=== PATIENT | female | born 1980 | race Caucasian/White ===

== ENCOUNTER 2018-03-11 00:12 | Emergency (ER) | payer OTHER ==
[2018-03-11] MEDS ORDERED: IPRATROPIUM 0.5 MG/2.5 ML NEBU INHALATION STA (00:50)
[2018-03-11] MEDS ORDERED: ALBUTEROL NEBULIZED 2.5 MG/3 ML INHALATION STA (00:50)
[2018-03-11] MEDS ORDERED: methylPREDNISolone SOD SUCCI 125 MG/2 ML VIAL IV STA (00:51)
--- NOTE | 2018-03-11 02:35 | XR ---
EXAMINATION TYPE: XR chest 2V DATE OF EXAM: 03/11/2018 COMPARISON: NONE HISTORY: Cough TECHNIQUE: Frontal and lateral views of the chest are obtained. FINDINGS: There is a mild infiltrate in the left lower lobe. The other lung osman are clear. Heart and mediastinum are normal. There is no pleural effusion. Bony thorax is intact. IMPRESSION: Patchy left lower lobe pneumonia.
[2018-03-11 02:41] VITALS: BP 141/67; TEMP 99.4
[2018-03-11] MEDS ORDERED: IPRATROPIUM-ALBUTEROL 3 ML NEB INHALATION STA (02:48)
[2018-03-11] MEDS ORDERED: KETOROLAC 30 MG/ML 1 ML VIAL IVP STA (03:12)
--- NOTE | 2018-03-11 03:13 | ED ---
General Adult HPI - General Chief complaint: Upper Respiratory Infection Stated complaint: JOSE RAFAEL, cold Time Seen by Provider: 03/11/18 00:35 Source: patient Mode of arrival: ambulatory Limitations: no limitations - History of Present Illness Initial comments: 37-year-old female patient presents to the emergency department today for evaluation of shortness of breath, cough, and wheezing. Patient states that she has been sick with cough and congestion for the last 3 days. Patient states that she is very wheezy. She is reporting chest tightness. Patient states that she is short of breath and it worsens with any activity. Patient states that she cannot stop coughing. States that she has chest pain when she coughs. She denies any sputum production with the cough. Patient does admit to using tobacco. She denies any sweats, nausea, or vomiting. Denies any fevers, but states she has been chilled. Patient denies any recent rash, abdominal pain, nausea, vomiting, diarrhea, constipation, back pain, numbness, tingling, dizziness, weakness, hematuria, dysuria, urinary urgency, urinary frequency, visual changes, or any other complaints. - Related Data Previous Rx's Medication Instructions Recorded Albuterol Sulfate [Proair Hfa] 1 - 2 puff INHALATION Q6HR PRN #1 03/11/18 inhaler Benzonatate [Tessalon Perles] 100 mg PO TID #15 cap 03/11/18 Doxycycline Hyclate 100 mg PO BID #20 tab 03/11/18 Promethazine 6.25MG/5Ml [Phenergan 5 ml PO Q6H PRN #100 ml 03/11/18 Syrup] predniSONE 50 mg PO DAILY #5 tablet 03/11/18 Allergies Allergy/AdvReac Type Severity Reaction Status Date / Time No Known Allergies Allergy Verified 03/11/18 00:17 Review of Systems ROS Statement: Those systems with pertinent positive or pertinent negative responses have been documented in the HPI. ROS Other: All systems not noted in ROS Statement are negative. Past Medical History Past Medical History: No Reported History History of Any Multi-Drug Resistant Organisms: None Reported Past Surgical History: Tonsillectomy Additional Past Surgical History / Comment(s): carpal tunnel release right hand Past Psychological History: No Psychological Hx Reported Smoking Status: Current every day smoker Past Alcohol Use History: Rare Past Drug Use History: None Reported General Exam Limitations: no limitations General appearance: alert, in no apparent distress, other (This is a well- developed, well-nourished adult female patient who appears to be short of breath. Vital signs upon presentation are temperature 98.8F, pulse 85, respirations 22, blood pressure 160/82, pulse ox 94% on room air.) Eye exam: Present: normal appearance, PERRL, EOMI. Absent: scleral icterus, conjunctival injection, periorbital swelling ENT exam: Present: normal exam, normal oropharynx, mucous membranes moist Neck exam: Present: normal inspection. Absent: tenderness, meningismus, lymphadenopathy Respiratory exam: Present: respiratory distress (Patient is short of breath, has difficulty speaking in full sentences. Frequent coughing.), wheezes (Tight inspiratory and expiratory wheezing noted throughout all lung osman), other ( Tachypnea). Absent: normal lung sounds bilaterally, rales, rhonchi, stridor, chest wall tenderness Cardiovascular Exam: Present: regular rate, normal rhythm, normal heart sounds. Absent: systolic murmur, diastolic murmur, rubs, gallop, clicks GI/Abdominal exam: Present: soft, normal bowel sounds. Absent: distended, tenderness, guarding, rebound, rigid Neurological exam: Present: alert, oriented X3, CN II-XII intact Psychiatric exam: Present: normal affect, normal mood Skin exam: Present: warm, dry, intact, normal color. Absent: rash Course Vital Signs 03/11/18 03/11/18 03/11/18 00:14 00:36 01:25 Temperature 98.8 F Pulse Rate 85 83 Respiratory 22 18 Rate Blood Pressure 160/82 O2 Sat by Pulse 94 L Oximetry 03/11/18 03/11/18 03/11/18 01:50 02:04 02:40 Temperature 99.4 F Pulse Rate 82 86 105 H Respiratory 16 Rate Blood Pressure 141/67 O2 Sat by Pulse 93 L Oximetry 03/11/18 03/11/18 03/11/18 02:52 02:53 03:12 Temperature Pulse Rate 95 Respiratory Rate Blood Pressure O2 Sat by Pulse 88 L 91 L Oximetry 03/11/18 03/11/18 03:26 04:00 Temperature Pulse Rate 95 100 Respiratory 17 Rate Blood Pressure O2 Sat by Pulse 91 L Oximetry Medical Decision Making - Medical Decision Making 37-year-old female patient presents to the emergency department today for complaints of shortness of breath, wheezing, and cough. Physical examination does reveal tight inspiratory and expiratory wheezing throughout all posterior lung osman. Patient did receive a double albuterol with Atrovent treatment upon arrival. Patient reported minimal improvement of her symptoms. We did give IV Solu-Medrol. She did receive a second DuoNeb treatment. Patient states she is feeling somewhat better. Oxygen saturation continues to be in the low 90s. I did offer patient admission however she would like to try to be discharged home to manage symptoms outpatient. She will be given a prescription for prednisone, pro-air, doxycycline, and cough suppressant. She is instructed to follow-up with the primary care physician for recheck as soon as possible. Return parameters were discussed in detail. She verbalizes understanding and agrees with this plan. - Radiology Data Radiology results: report reviewed, image reviewed Two-view x-ray of the chest is obtained. There is mild infiltrate in the left lower lobe. The other lung osman are clear. Heart and mediastinum are normal. There is no pleural effusion. Bony thorax is intact. Impression by Dr. Saldana shows patchy left lower lobe pneumonia. Disposition Clinical Impression: Acute bronchitis, Left lower lobe pneumonia Disposition: HOME SELF-CARE Condition: Fair Instructions: Acute Bronchitis (ED), Pneumonia (ED) Additional Instructions: Take medications as directed. Follow-up with the primary care physician for recheck as soon as possible. We will provide a name of her primary care physician who is excepting patients. Return here immediately if her symptoms worsen, change, or if he develops any new symptoms. Prescriptions: Albuterol Sulfate [Proair Hfa] 1 - 2 puff INHALATION Q6HR PRN #1 inhaler PRN Reason: Wheezing Benzonatate [Tessalon Perles] 100 mg PO TID #15 cap Doxycycline Hyclate 100 mg PO BID #20 tab predniSONE 50 mg PO DAILY #5 tablet Promethazine 6.25MG/5Ml [Phenergan Syrup] 5 ml PO Q6H PRN #100 ml PRN Reason: Cough Is patient prescribed a controlled substance at d/c from ED?: No Referrals: Micheline Coates MD [STAFF PHYSICIAN] - 1-2 days Time of Disposition: 03:58
[2018-03-11] MEDS ORDERED: DOXYCYCLINE 50 MG CAP PO STA (03:59)
[2018-03-11] MEDS ORDERED: BENZONATATE 100 MG CAP PO STA (04:00)
[2018-03-11 04:02] VITALS: PULSE 100; RESP 17
== END 2018-03-11 04:08 | disposition home or self-care (01) ==
LOC: EC 00:12
DX: J18.9 Pneumonia, unspecified organism (principal); J20.9 Acute bronchitis, unspecified; F17.200 Nicotine dependence, unspecified, uncomplicated
CPT/HCPCS: 94640 ×2; 71046; 99283; 96374; 96375; J2930; J1885

== ENCOUNTER → 2019-07-18 | Outpatient (CLI) | payer OTHER ==
[2019-07-18 10:43] LABS: Basophils # (A) 0.1 k/uL (0-0.2); Basophils % (A) 1 %; Eosinophils # (A) 0.3 k/uL (0-0.7); Eosinophils % (A) 4 %; HCT 38.6 % (34.0-46.0); Lymphocytes # (A) 2.3 k/uL (1.0-4.8); Lymphocytes % (A) 34 %; MCH 28.2 pg (25.0-35.0); MCHC 31.1 g/dL (31.0-37.0); MCV 90.5 fL (80.0-100.0); Mean Platelet Volume 6.2; Monocytes # (A) 0.4 k/uL (0-1.0); Monocytes % (A) 5 %; Neutrophils # (A) 3.5 k/uL (1.3-7.7); Neutrophils % (A) 52 %; Platelet Count 396 k/uL (150-450); RBC 4.27 m/uL (3.80-5.40); RDW 14.6 % (11.5-15.5); WBC 6.8 k/uL (3.8-10.6)
[2019-07-18 12:12] LABS: Erythrocyte Sedimentation Rate 6 mm/hr (0-20)
--- NOTE | 2019-07-18 14:25 | XR ---
EXAMINATION TYPE: XR lumbosacral spine min 4V DATE OF EXAM: 07/18/2019 COMPARISON: NONE HISTORY: 38-year-old female disc disease with low back pain TECHNIQUE: 5 views FINDINGS: The transitional lumbosacral segment denoted as a lumbarized S1. This transitional segment demonstrat es a left-sided hemisacralization with degenerative assimilation joint. Trace grade 1 retrolisthesis at L3-L4 due to an accentuated lower lumbar lordosis. Mild degenerative disc disease at L5-S1. Verteb ral body heights are preserved. IMPRESSION: 1. 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 Mild degenerative disc disease above at L5-S1.
[2019-07-18 16:20] LABS: Vitamin D 25 Hydroxy 18.4 ng/mL (30.0-100.0)
[2019-07-18 16:46] LABS: African American GFR (CKD) 108.4 (60.0-200.0); Albumin 3.7 g/dL (3.80-4.90); Albumin/Globulin Ratio 2.47 (1.60-3.17); Anion Gap 4.3 mmol/L (4.00-12.00); BUN/Creat Ratio 7.5 Ratio (12.00-20.00); C Reactive Protein 0.6 mg/dL (0.0-0.8); Calcium 8.6 mg/dL (8.7-10.3); Carbon Dioxide 28.7 mmol/L (21.6-31.8); Chol/HDL Ratio 3.49; Globulin 1.5 g/dL (1.6-3.3); LDL Cholesterol,Calculated 101.6 mg/dL (0.0-131.0); Non-African American GFR(CKD) 93.5 (60.0-200.0); Potassium 4.3 mmol/L (3.5-5.5); Total Bilirubin 0.3 mg/dL (0.3-1.2); Total Protein 5.2 g/dL (6.2-8.2); Uric Acid 4.9 mg/dL (2.9-7.7); VLDL Calculation 30.4 mg/dL (5.00-40.00)
[2019-07-18 18:03] LABS: Hepatitis C IgG Antibody Non-Reactive (Non-Reactive)
== END ==
LOC: LABWHC1 09:38
PROVIDERS: ATTEND Internal Medicine
DX: M51.37 Other intervertebral disc degeneration, lumbosacral region (principal); M54.5 Low back pain; D64.9 Anemia, unspecified; E78.5 Hyperlipidemia, unspecified; E87.8 Other disorders of electrolyte and fluid balance, not elsewhere classified; K75.9 Inflammatory liver disease, unspecified; E03.9 Hypothyroidism, unspecified; E55.9 Vitamin D deficiency, unspecified
CPT/HCPCS: 36415; 72110; 80053; 80061; 82306; 82550; 84443; 84550; 85025; 85652; 86140; 86803

== ENCOUNTER 2019-09-29 12:10 | Emergency (ER) | payer OTHER ==
[2019-09-29 12:41] VITALS: TEMP 98.5
[2019-09-29] MEDS ORDERED: IPRATROPIUM-ALBUTEROL 3 ML NEB INHALATION STA (13:52)
[2019-09-29 13:59] VITALS: RESP 18
--- NOTE | 2019-09-29 14:41 | XR ---
EXAMINATION TYPE: XR chest 2V DATE OF EXAM: 09/29/2019 COMPARISON: 03/11/2018 HISTORY: 39-year-old female with cough and congestion TECHNIQUE: PA and lateral views FINDINGS: The cardiomediastinal silhouette, aorta, and pulmonary vasculature are within normal limits. Patchy a irspace opacity at the inferior lingula. No pleural effusion. IMPRESSION: Inferior lingular pneumonia.
[2019-09-29] MEDS ORDERED: AZITHROMYCIN 500 MG TAB PO STA (14:56)
[2019-09-29 15:12] VITALS: BP 122/67; PULSE 67
[2019-09-29] MEDS ORDERED: cefTRIAXone 1,000 MG VIAL (IM USE) IM STA (16:01)
--- NOTE | 2019-09-29 16:01 | ED ---
General Adult HPI - General Chief complaint: Upper Respiratory Infection Stated complaint: JOSE RAFAEL, fever Time Seen by Provider: 09/29/19 13:25 Source: patient, RN notes reviewed, old records reviewed Mode of arrival: ambulatory Limitations: no limitations - History of Present Illness Initial comments: 39-year-old female patient no pertinent past medical history presents to ED for chief complaint of cough, congestion and waxing and waning fever since Thursday. Patient reports that she has some chest discomfort and shortness breath while coughing hard denies any baseline. Denies any reason to have medial Prostate. Denies any history of lung disease. Patient was a former smoker. Denies any other complaints at this time. Systemic: Pt denies fatigue, fever/chills, rash. Pt denies weakness, night sweats, weight loss. Neuro: Pt denies headache, visual disturbances, syncope or pre-syncope. HEENT: Pt denies ocular discharge or irritation, otalgia, rhinorrhea, pharyngitis or notable lymphadenopathy. Cardiopulmonary: Pt denies heart palpitations, dyspnea on exertion. Abdominal/GI: Pt denies abdominal pain, n/v/d. : Pt denies dysuria, burning w/ urination, frequency/urgency. Denies new onset urinary or bowel incontinence. MSK: Pt denies myalgia, loss of strength or function in extremities. Neuro: Pt denies new onset weakness, paresthesias. - Related Data Previous Rx's Medication Instructions Recorded Albuterol Sulfate [Proair Hfa] 1 - 2 puff INHALATION Q6HR PRN #1 03/11/18 inhaler Benzonatate [Tessalon Perles] 100 mg PO TID #15 cap 03/11/18 Doxycycline Hyclate 100 mg PO BID #20 tab 03/11/18 Promethazine 6.25MG/5Ml [Phenergan 5 ml PO Q6H PRN #100 ml 03/11/18 Syrup] predniSONE 50 mg PO DAILY #5 tablet 03/11/18 Albuterol Inhaler [Ventolin Hfa 1 - 2 puff INHALATION Q4-6H PRN #1 09/29/19 Inhaler] inhaler Azithromycin [Zithromax Z-pack] 0 mg PO DIRECTED #6 tab 09/29/19 predniSONE 50 mg PO DAILY #5 tab 09/29/19 Allergies Allergy/AdvReac Type Severity Reaction Status Date / Time No Known Allergies Allergy Verified 03/11/18 00:17 Review of Systems ROS Statement: Those systems with pertinent positive or pertinent negative responses have been documented in the HPI. ROS Other: All systems not noted in ROS Statement are negative. Past Medical History Past Medical History: No Reported History History of Any Multi-Drug Resistant Organisms: None Reported Past Surgical History: Tonsillectomy Additional Past Surgical History / Comment(s): carpal tunnel release right hand Past Psychological History: No Psychological Hx Reported Smoking Status: Former smoker Past Alcohol Use History: Rare Past Drug Use History: None Reported General Exam - General Exam Comments Initial Comments: Constitutional: NAD, AOX3, Pt has pleasant affect. HEENT: NC/AT, trachea midline, neck supple, no lymphadenopathy. Posterior pharynx non erythematous, without exudates. External ears appear normal, without discharge. Mucous membranes moist. Eyes PERRLA, EOM intact. There is no scleral icterus. No pallor noted. Cardiopulmonary: RRR, no murmurs, rubs or gallops, no JVD noted. Wheezing noted in anterior posterior lung osman. significant improvement after breathing treatment. No respiratory distress. No peripheral edema. Abdominal exam: Abdomen soft and non-distended. Abdomen non-tender to palpation in all 4 quadrants. Bowel sounds active in LLQ. No hepatosplenomegaly. No ecchymosis Neuro: CN II-XII grossly intact. No nuchal rigidity. No raccon eyes, no howe sign, no hemotympanum. No cervical spinal tenderness. MSK: No posterior calf tenderness bilaterally, homans sign negative bilaterally. Posterior tibialis and radial pulse +2 bilaterally. Sensation intact in upper and lower extremities. Full active ROM in upper and lower extremities, 5/5 stregnth. Limitations: no limitations Course Vital Signs 09/29/19 09/29/19 09/29/19 12:38 13:58 14:36 Temperature 98.5 F Pulse Rate 74 80 Respiratory 24 18 Rate Blood Pressure 171/72 O2 Sat by Pulse 94 L Oximetry 09/29/19 09/29/19 14:46 15:11 Temperature Pulse Rate 84 67 Respiratory 18 Rate Blood Pressure 122/67 O2 Sat by Pulse 95 Oximetry Medical Decision Making - Medical Decision Making 39-year-old female patient no pertinent past medical history presents to ED for chief complaint of cough, congestion and waxing and waning fever since Thursday. Patient reports that she has some chest discomfort and shortness breath while coughing hard denies any baseline. Denies any reason to have medial Prostate. Denies any history of lung disease. Patient was a former smoker. Denies any other complaints at this time. Patient will signs stable at discharge. Physical exam didn't display wheezing which improved. Otherwise no pathology. Cxr displayed lingular pneumonia. EKG is nonischemic. Patient initiated on azithromycin. We discharged the treatment steroids and azithromycin and have close outpatient follow-up. Case discussed with Dr. Rich. - Lab Data Lab Results 09/29/19 Range/Units 14:15 Influenza Type A RNA Not Detected (Not Detectd) Influenza Type B (PCR) Not Detected (Not Detectd) Disposition Clinical Impression: Community acquired pneumonia Disposition: HOME SELF-CARE Condition: Stable Instructions (If sedation given, give patient instructions): Community Acquired Pneumonia (ED) Additional Instructions: Take antibiotics as directed. Use breathing treatments as needed for shortness of breath and wheezing. Take steroids as directed. Follow-up with primary care provider tomorrow. Return to ER if condition worsens. Prescriptions: predniSONE 50 mg PO DAILY #5 tab Albuterol Inhaler [Ventolin Hfa Inhaler] 1 - 2 puff INHALATION Q4-6H PRN #1 inhaler PRN Reason: Cough Azithromycin [Zithromax Z-pack] 0 mg PO DIRECTED #6 tab Is patient prescribed a controlled substance at d/c from ED?: No Referrals: Jama Orellana MD [Primary Care Provider] - 1-2 days
== END 2019-09-29 16:11 | disposition home or self-care (01) ==
LOC: EC 12:10
DX: J18.9 Pneumonia, unspecified organism (principal); Z87.891 Personal history of nicotine dependence
CPT/HCPCS: 94640; 93005; 87502; 71046; 99284; 96372; J0696

== ENCOUNTER 2019-10-04 14:12 | Emergency (ER) | payer OTHER ==
--- NOTE | 2019-10-04 14:29 | ED ---
URI HPI - General Stated Complaint: Pneumonia Time Seen by Provider: 10/04/19 14:26 Source: patient, RN notes reviewed Mode of arrival: ambulatory Limitations: no limitations - History of Present Illness Initial Comments: This is a 39 year old female that presents to the ER for recheck of pneumonia. Patient was seen here last week diagnosed with pneumonia. Patient was on stero ids, zpak and albuterol treatments. No improvement of cough and shortness of breath. Non productive cough, patient states the fevers have resolved after taking antibiotics. Patient does have a history of smoking. No history of asthma. Patient has been doing albuterol treatments at home states is not helping anymore. Patient was advised to return to emergency from for recheck. - Related Data Previous Rx's Medication Instructions Recorded Albuterol Sulfate [Proair Hfa] 1 - 2 puff INHALATION Q6HR PRN #1 03/11/18 inhaler Benzonatate [Tessalon Perles] 100 mg PO TID #15 cap 03/11/18 Doxycycline Hyclate 100 mg PO BID #20 tab 03/11/18 Promethazine 6.25MG/5Ml [Phenergan 5 ml PO Q6H PRN #100 ml 03/11/18 Syrup] predniSONE 50 mg PO DAILY #5 tablet 03/11/18 Albuterol Inhaler [Ventolin Hfa 1 - 2 puff INHALATION Q4-6H PRN #1 09/29/19 Inhaler] inhaler Azithromycin [Zithromax Z-pack] 0 mg PO DIRECTED #6 tab 09/29/19 predniSONE 50 mg PO DAILY #5 tab 09/29/19 Ipratropium-Albuterol Nebulize 3 ml INHALATION QID #1 box 10/04/19 [Duoneb 0.5 mg-3 mg/3 ml Soln] predniSONE 50 mg PO DAILY #3 tab 10/04/19 Allergies Allergy/AdvReac Type Severity Reaction Status Date / Time No Known Allergies Allergy Verified 03/11/18 00:17 Review of Systems ROS Statement: Those systems with pertinent positive or pertinent negative responses have been documented in the HPI. ROS Other: All systems not noted in ROS Statement are negative. Past Medical History Past Medical History: No Reported History History of Any Multi-Drug Resistant Organisms: None Reported Past Surgical History: Tonsillectomy Additional Past Surgical History / Comment(s): carpal tunnel release right hand Past Psychological History: No Psychological Hx Reported Smoking Status: Former smoker Past Alcohol Use History: Rare Past Drug Use History: None Reported General Exam General appearance: alert, in no apparent distress Head exam: Present: atraumatic, normocephalic, normal inspection Eye exam: Present: normal appearance, PERRL, EOMI. Absent: scleral icterus, conjunctival injection, periorbital swelling ENT exam: Present: normal exam, normal oropharynx, mucous membranes moist Neck exam: Present: normal inspection, full ROM. Absent: tenderness, meningismus, lymphadenopathy Respiratory exam: Present: wheezes. Absent: normal lung sounds bilaterally, respiratory distress, rales, rhonchi, stridor Cardiovascular Exam: Present: regular rate, normal rhythm, normal heart sounds. Absent: systolic murmur, diastolic murmur, rubs, gallop, clicks Back exam: Absent: CVA tenderness (R), CVA tenderness (L) Neurological exam: Present: alert, oriented X3 Skin exam: Present: warm, dry, intact, normal color. Absent: rash Course Vital Signs 10/04/19 10/04/19 10/04/19 14:25 14:44 15:18 Temperature 98.1 F Pulse Rate 69 69 Respiratory 20 24 Rate Blood Pressure 135/71 O2 Sat by Pulse 93 L Oximetry 10/04/19 10/04/19 10/04/19 15:30 17:16 17:18 Temperature Pulse Rate 76 74 74 Respiratory 18 22 Rate Blood Pressure 131/75 O2 Sat by Pulse 99 Oximetry Medical Decision Making - Medical Decision Making Patient was given multiple breathing treatments, patient's symptoms have improved. Chest x-ray shows resolution of pneumonia. Patient has an appointment mild PCP she was offered admission states that she rather follow-up tomorrow as she is feeling improved return parameters were discussed. - Lab Data Result diagrams: 10/04/19 15:55 10/04/19 15:55 Lab Results 10/04/19 10/04/19 Range/Units 15:55 15:55 WBC 12.4 H (3.8-10.6) k/uL RBC 4.10 (3.80-5.40) m/uL Hgb 11.8 (11.4-16.0) gm/dL Hct 36.0 (34.0-46.0) % MCV 87.8 (80.0-100.0) fL MCH 28.8 (25.0-35.0) pg MCHC 32.8 (31.0-37.0) g/dL RDW 14.1 (11.5-15.5) % Plt Count 462 H (150-450) k/uL Neutrophils % 58 % Lymphocytes % 32 % Monocytes % 5 % Eosinophils % 2 % Basophils % 2 % Neutrophils # 7.1 (1.3-7.7) k/uL Lymphocytes # 4.0 (1.0-4.8) k/uL Monocytes # 0.6 (0-1.0) k/uL Eosinophils # 0.2 (0-0.7) k/uL Basophils # 0.2 (0-0.2) k/uL Sodium 139 (137-145) mmol/L Potassium 3.6 (3.5-5.1) mmol/L Chloride 107 (98-107) mmol/L Carbon Dioxide 25 (22-30) mmol/L Anion Gap 7 mmol/L BUN 10 (7-17) mg/dL Creatinine 0.77 (0.52-1.04) mg/dL Est GFR (CKD-EPI)AfAm >90 (>60 ml/min/1.73 sqM) Est GFR (CKD-EPI)NonAf >90 (>60 ml/min/1.73 sqM) Glucose 96 (74-99) mg/dL Calcium 8.9 (8.4-10.2) mg/dL Disposition Clinical Impression: Acute bronchospasm Disposition: HOME SELF-CARE Condition: Stable Instructions (If sedation given, give patient instructions): Bronchospasm (ED) Additional Instructions: Please return to the Emergency Department if symptoms worsen or any other concerns. Prescriptions: Ipratropium-Albuterol Nebulize [Duoneb 0.5 mg-3 mg/3 ml Soln] 3 ml INHALATION QID #1 box predniSONE 50 mg PO DAILY #3 tab Is patient prescribed a controlled substance at d/c from ED?: No Referrals: Jama Orellana MD [Primary Care Provider] - 1-2 days Time of Disposition: 17:34
--- NOTE | 2019-10-04 14:42 | XR ---
EXAMINATION TYPE: XR chest 2V DATE OF EXAM: 10/04/2019 COMPARISON: 09/29/2019 HISTORY: Fever and cough TECHNIQUE: Frontal and lateral views of the chest are obtained. FINDINGS: Improved aeration of the lingula in comparison the prior. There is no focal air space opac ity, pleural effusion, or pneumothorax seen. The cardiac silhouette size is within normal limits. M ild multilevel degenerative disc disease of the spine. The osseous structures are intact. IMPRESSION: No acute cardiopulmonary process. Lingular pneumonia has resolved radiographically.
[2019-10-04] MEDS ORDERED: IPRATROPIUM-ALBUTEROL 3 ML NEB INHALATION STA (14:55)
[2019-10-04] MEDS ORDERED: SODIUM CHLORIDE 0.9% 1,000 ML IV ONE (15:36)
[2019-10-04] MEDS ORDERED: methylPREDNISolone SOD SUCCI 125 MG/2 ML VIAL IV STA (15:36)
[2019-10-04] MEDS ORDERED: KETOROLAC 30 MG/ML 1 ML VIAL IVP STA (15:36)
[2019-10-04] MEDS ORDERED: ALBUTEROL NEBULIZED 2.5 MG/3 ML INHALATION STA (16:17)
[2019-10-04 16:22] LABS: Basophils # (A) 0.2 k/uL (0-0.2); Basophils % (A) 2 %; Eosinophils # (A) 0.2 k/uL (0-0.7); Eosinophils % (A) 2 %; HGB 11.8 gm/dL (11.4-16.0); Lymphocytes % (A) 32 %; MCH 28.8 pg (25.0-35.0); MCHC 32.8 g/dL (31.0-37.0); MCV 87.8 fL (80.0-100.0); Mean Platelet Volume 6.8; Monocytes # (A) 0.6 k/uL (0-1.0); Monocytes % (A) 5 %; Neutrophils # (A) 7.1 k/uL (1.3-7.7); Neutrophils % (A) 58 %; Platelet Count 462 k/uL (150-450); RDW 14.1 % (11.5-15.5); WBC 12.4 k/uL (3.8-10.6)
[2019-10-04 16:28] LABS: African American GFR (CKD) >90 (>60 ml/min/1.73 sqM); Anion Gap 7 mmol/L; Blood Urea Nitrogen 10 mg/dL (7-17); Calcium 8.9 mg/dL (8.4-10.2); Carbon Dioxide 25 mmol/L (22-30); Chloride 107 mmol/L (98-107); Glucose 96 mg/dL (74-99); Non-African American GFR(CKD) >90 (>60 ml/min/1.73 sqM); Potassium 3.6 mmol/L (3.5-5.1); Sodium 139 mmol/L (137-145)
[2019-10-04 19:18] VITALS: BP 133/63; PULSE 81; RESP 16; TEMP 97.5
== END 2019-10-04 19:15 | disposition home or self-care (01) ==
LOC: EC 14:12
DX: J98.01 Acute bronchospasm (principal); J18.9 Pneumonia, unspecified organism; Z87.891 Personal history of nicotine dependence; Z90.89 Acquired absence of other organs
CPT/HCPCS: 36415; 94640 ×2; 80048; 85025; 71046; 99285; 96374; 96375; 96361 ×3; J2930; J1885